=== PATIENT | male | born 1965 | race Caucasian/White ===

== ENCOUNTER → 2017-05-21 | Outpatient (CLI) | payer BC ==
--- NOTE | 2017-05-21 11:32 | REP ---
Clinical: Neck and right upper extremity pain. Technique: AP, lateral, flexion/extension, bilateral oblique and open mouth views of the cervical spine. Comparison: 07/20/2013. Findings: Alignment remains stable. There is no evidence for acute fracture / compression injury or subluxation. Minimal degenerative changes at the C4-5 and C5-6 levels include subtle endplate sclerosis with very minimal marginal spurring. Spinal canal is patent. Posterior elements are intact. Prevertebral soft tissues are normal. C1-C2 articulation and odontoid process normal. Impression: Very mild degenerative changes at the C4-5 and C5-6 levels. Signed by Kendrick Tapia MD 05/21/2017 11:24 A
== END ==
LOC: M SMT 10:23
PROVIDERS: ATTEND Physician Assistant
DX: M25.511 Pain in right shoulder (principal)

== ENCOUNTER → 2020-04-16 | Outpatient (CLI) | payer OTHER, SELFPAY | LOC: M LABSMTC 10:20 | PROVIDERS: ATTEND Pediatrics | DX: Z11.59 Encounter for screening for other viral diseases (principal); Z20.828 Contact with and (suspected) exposure to other viral communicable diseases ==

== ENCOUNTER → 2021-05-22 | Outpatient (CLI) | payer BC ==
[2021-05-22 08:46] LABS: BASO # 0.1 10^3/uL (0.0-0.2); BASO % 0.6 % (0.0-1.0); EOS # 0.2 10^3/uL (0.0-0.5); HEMATOCRIT 48.3 % (42.0-52.0); HEMOGLOBIN 15.9 g/dl (13.5-17.5); LYMPH # 3.4 10^3/uL (1.5-5.0); LYMPH % 34.5 % (24.0-44.0); MEAN CORPUSCULAR HEMOGLOBIN 30.1 pg (27.0-33.0); MEAN CORPUSCULAR HGB CONC 32.9 g/dl (32.0-36.5); MEAN CORPUSCULAR VOLUME 91.3 fl (80.0-96.0); MONO # 0.6 10^3/uL (0.0-0.8); MONO % 6.5 % (2.0-8.0); NEUTROPHILS # 5.4 10^3/uL (1.5-8.5); NEUTROPHILS % 55.5 % (36.0-66.0); PLATELET COUNT, AUTOMATED 270 10^3/uL (150-450); RED BLOOD COUNT 5.29 10^6/uL (4.30-6.10); WHITE BLOOD COUNT 9.7 10^3/uL (4.0-10.0)
[2021-05-22 09:24] LABS: ALBUMIN 2.7 GM/DL (3.2-5.2); ALT/SGPT 34 U/L (12-78); BILIRUBIN,TOTAL 0.5 MG/DL (0.2-1.0); BLOOD UREA NITROGEN 15 MG/DL (7-18); CALCIUM LEVEL 8.9 MG/DL (8.5-10.1); CARBON DIOXIDE LEVEL 30 MEQ/L (21-32); CHLORIDE LEVEL 108 MEQ/L (98-107); CHOLESTEROL LEVEL 253 MG/DL (<200); CHOLESTEROL RISK RATIO 5.622 (<5); CREATININE FOR GFR 0.91 MG/DL (0.70-1.30); FREE T4 0.83 NG/DL (0.76-1.46); GLOMERULAR FILTRATION RATE > 60.0 (>56); GLUCOSE, FASTING 105 MG/DL (70-100); HDL CHOLESTEROL 45 MG/DL (>40); LDL CHOLESTEROL 181 MG/DL (<100); NON-HDL-C 208 MG/DL; POTASSIUM SERUM 4.7 MEQ/L (3.5-5.1); SODIUM LEVEL 141 MEQ/L (136-145); TOTAL PROTEIN 7.1 GM/DL (6.4-8.2); TRIGLYCERIDES LEVEL 133 MG/DL (<150)
[2021-05-22 09:26] LABS: TOTAL 25(OH) VITAMIN D 17.2 NG/ML (30.0-100.0)
[2021-05-22 11:12] LABS: HEMOGLOBIN A1c 6.1 %
--- NOTE | 2021-05-27 17:01 | SLEEPHOME ---
DATE: 05/22/2021 ORDERED BY: Antonio Smith Diagnostic home sleep testing was performed due to concern for the obstructive sleep apnea syndrome. For testing, a NIOX T3 respiratory monitoring device was used. Continuous record was made of pulse, oxygen saturation, air flow, chest and abdominal strain, and body position. There was 5 hours and 40 minutes of data reviewed. During this interval there were 153 respiratory events identified of 10 seconds in duration. The events were primarily obstructive, not exclusive to sleep position. Baseline pulse revealed saturation of 97%. Lowest oxygen saturation recorded 71%. Baseline pulse rate 63 beats per minute. Pulse rate ranged 47-106. Testing was performed in both the supine and nonsupine positions. IMPRESSION: Abnormal home sleep testing with repetitive respiratory events and oxygen desaturations to 71% with a respiratory event index of 27.3 is consistent with the obstructive sleep apnea syndrome. RECOMMENDATION: The patient should be encouraged to undergo formal sleep evaluation.
== END ==
LOC: M SLEEP HO 08:06
PROVIDERS: ATTEND Physician Assistant
DX: Z12.5 Encounter for screening for malignant neoplasm of prostate (principal); Z13.29 Encounter for screening for other suspected endocrine disorder; Z13.220 Encounter for screening for lipoid disorders; R06.83 Snoring
CPT/HCPCS: 80053; 80061; 82306; 83036; 84439; 84443; 85025; G0103; G0399

== ENCOUNTER → 2021-07-18 | Outpatient (CLI) | payer BC ==
[~2021-07-18] MED LIST: ROSU10TA6
== END ==
LOC: M LABSMTC 09:54
PROVIDERS: ATTEND Anesthesiology
DX: Z01.812 Encounter for preprocedural laboratory examination (principal); Z20.822 Contact with and (suspected) exposure to COVID-19

== ENCOUNTER 2021-07-23 08:14 | Day surgery (SDC) | payer BC ==
[~2021-07-23] VITALS: Ht 175.3 cm; Wt 122.9 kg
[~2021-07-23 08:14] MED LIST changes: +NS 1,000 ML IV ONE
--- OUTSIDE RECORDS SUMMARY | 2021-07-23 08:17 | CCD | Continuity of Care Document ---
Author Author Oliverio STEARNS DC Organization Unknown Address [place] [address] Phone [phone] Care Team Providers Care Bulk Folder Name Role Phone Christiana Jim D.O. AUTM [phone] Problems Active Problems Provider Date Reduced libido Christiana Jim D.O. Onset: 2014 Hypersomnia, unspecified Christiana Jim D.O. Onset: 1 Chronic fatigue syndrome Christiana Jim D.O. Onset: 1 Low back pain Christiana Jim D.O. Onset: 2014 Body mass index 30+ - obesity Christiana Jim D.O. Ons et: 07/12/2015 Obesity Christiana Jim D.O. Onset: 2014 Urinary symptoms Christiana Jim D.O. Onset: 2014 Social History Type Date Description Comments Sex Unknown Tobacco Use Start: Unknown Never Smoked Cigarettes ETOH Use Occasionally consumes alcohol 3- 4/month Tobacco Use Start: Unknown Patient has never smoked Recreational Drug Use Denies Drug Use Exercise Type/Frequency Does not exercise Sun Exposure Does not use sunscreen Seat Belt/Car Seat Always uses car seat Allergies, Adverse Reactions, Alerts Description No Known Drug Allergies Medications Active Medications SIG Qnty Indications Ordering Provide r Date Betamethasone Dipropionate 0.05% C ream apply 1 grams of cream to affected area of body as needed twice a day for dry skin plaques 45gm L40.9 Christiana Jim D.O. 05/08 [facility] Home Sleep Study snoring and fatigue 1units R06.83 Christiana Jim D.O. 05/08/2021 Ketoconazole 2% Cream apply to axilla twice daily for three weeks 30gm B35.4 Christiana Jim D.O. 05/08/2021 Ibuprofen 600mg Tablets take 1 by mouth every three times a day as needed for pain with food 90tabs M77.12 Christiana Jim D.O. 04/08/2017 Immunizations Description No Information Available Vital Signs Date Vital Result Comment 05/08/2021 3:40pm BP Systolic 128 mmHg BP Diastolic 78 mmHg Height 69.5 inches 5'9.50" Weight 278.38 lb BMI (Body Mass Index) 40.5 kg/m2 Heart Rate 86 /min Respiratory Rate 18 /min Body Temperature 98.8 F O2 % BldC Oximetry 97 % [place] Body Weight 160 lb 08/15/2018 3:46pm BP Systolic 128 mmHg BP Diastolic 78 mmHg Height 69.5 inches 5'9.50" Weight 258.25 lb BMI (Body Mass Index) 37.6 kg/m2 Heart Rate 92 /min Respiratory Rate 18 /min Body Temperature 98.7 F O2 % BldC Oximetry 98 % [place] Body Weight 160 lb Results Description No Information Available Procedures Description No Information Available Medical Devices Description No Information Available Encounters Description No Information Available Assessments Date Code Description Provider 05/08/2021 R06.83 Snoring IVANNA Lay 05/08/2021 Z13.220 Encounter for screening for lipo id disorders IVANNA Lay 05/08/2021 Z13.29 Encounter for screen ing for other suspected endocrine disorder IVANNA Lya 05/08/2021 Z12.5 Encounter for screening for ayleen gnant neoplasm of prostate IVANNA Lay 05/08/2021 Z12.11 Encounter for screening for ayleen gnant neoplasm of colon IVANNA Lay 05/08/2021 L40.9 Psoriasis, unspecified IVANNA Tuttle 05/08/2021 B35.4 Tinea corporis IVANNA Lay Plan of Treatment Future Appointment(s):* 06/16/2021 3:40 pm - IVANNA Lay at [facility] 05/08/2021 - IVANNA Lay* R06.83 Snoring* New Medication:* [facility] Home Sleep Study - snoring and fatigue * Follow up:* 1 months * Z13.220 Encounter for screening for lipoid disorders* New Labs:* Lipid Panel, Scheduled: 05/08/21 * Z13.29 Encounter for screening for other suspected endocrine disorder* New Labs:* Hemoglobin A1c, Scheduled: 05/08/21 * FT4&TSH Panel, Scheduled: 05/08/21 * Vitamin D 25-Hydroxy, Scheduled: 05/08/21 * Z12.5 Encounter for screening for malignant neoplasm of prostate* New Labs:* CBC With Differential, Scheduled: 05/08/21 * Comprehensive Metabolic Profil, Scheduled: 05/08/21 * PSA Screening, Scheduled: 05/08/21 * Z12.11 Encounter for screening for malignant neoplasm of colon* Comments:* Referral placed for Dr. Abran Kearns for evaluation of a colonoscopy and possible endoscopy. * Referral:* Abran Kearns M.D., Surgery,General * L40.9 Psoriasis, unspecified* New Medication:* Betamethasone Dipropionate 0.05 % - apply 1 grams of cream to affected area of body as needed twice a day for dry skin plaques * B35.4 Tinea corporis* New Medication:* Ketoconazole 2 % - apply to axilla twice daily for three weeks Functional Status Description No Information Available Mental Status Description No Information Available Referrals Refer to Dr Reason for Referral Status Appt Date Abran Kearns M.D. [place] is 55 years old and in need of a colonoscopy. He has problems with stomach cramping, diarrhea and changes in stool pattern. Occasionally has black stool Created 6 [facility] [address] [place] [address] [phone]
--- OUTSIDE RECORDS SUMMARY | 2021-07-23 08:17 | CCD | Continuity of Care Document ---
Author Author Oliverio STEARNS [place] Organization Unknown [place] [address] Phone [phone] Care Team Providers Care Hvac R Tech Name Role Phone Christiana Jim D.O. AUTM [phone] Abran Kearns M.D. AUTM [phone] Problems Active Problems Provider Date Reduced libido [...] SIG Qnty Indications Ordering Provide r Date Vitamin D (Ergocalciferol) 1.25mg (27246 Ut) Capsules 1 capsule weekly for 12 weeks 12caps Christiana Nick D.O. 05/26/2021 Crestor 10mg Tablets 1 by mouth every day 90tabs Parminder VencesOLeroy 05/26/2021 Betamethasone Dipropionate 0.05% C ream apply 1 grams of cream to affected area of body as needed twice a day for dry skin plaques 45gm L40.9 Christiana Jim D.O. 05/08 [facility] Home Sleep Study snoring and fatigue 1units R06.83 Parminder VencesOLeroy 05/08/2021 Ketoconazole 2% Cream apply to axilla twice daily for three weeks 30gm B35.4 Christiana Jim D.O. 05/08/2021 Ibuprofen 600mg Tablets take 1 by mouth every three times a day as needed for pain with food 90tabs M77.12 Parminder VencesOLeroy 04/08/2017 Immunizations Description No Information Available Vital Signs Date Vital Result Comment 05/08/2021 3:40pm BP Systolic 128 mmHg BP Diastolic 78 mmHg Height 69.5 inches 5'9.50" Weight 278.38 lb BMI (Body Mass Index) 40.5 kg/m2 Heart Rate 86 /min Respiratory Rate 18 /min Body Temperature 98.8 F O2 % BldC Oximetry 97 % [place] Body Weight 160 lb 08/15/2018 3:46pm BP Systolic 128 mmHg BP Diastolic 78 mmHg Height 69.5 inches 5'9.50" Weight 258.25 lb BMI (Body Mass Index) 37.6 kg/m2 Heart Rate 92 /min Respiratory Rate 18 /min Body Temperature 98.7 F O2 % BldC Oximetry 98 % [place] Body Weight 160 lb Results Test Acquired Date Facility Test Result H/L Range Note CBC With Differential 05/22/[address] [address] [phone] White Blood Count 9.7 10 Normal 4.0-10.0 Red Blood Count 5.29 10 Normal 4.30-6.10 Hemoglobin 15.9 g/dL Normal 13.5-17.5 Hematocrit 48.3 % Normal 42.0-52.0 Mean Corpuscular Volume 91.3 fl Normal 80.0-96.0 Mean Corpuscular Hemoglobin 30.1 pg Normal 27.0-33.0 Mean Corpuscular HGB Conc 32.9 g/dL Normal 32.0-36.5 Red Cell Distribution Width 12.6 % Normal 11.5-14.5 Platelet Count, Automated 270 10 Normal 150-450 Neutrophils % 55.5 % Normal 36.0-66.0 Lymph % 34.5 % Normal 24.0-44.0 [place] % 6.5 % Normal 2.0-8.0 Eos % 2.0 % Normal 0.0-3.0 Baso % 0.6 % Normal 0.0-1.0 Immature Granulocyte % 0.9 % Normal 0-3.0 Nucleated Red Blood Cell % 0.0 % Normal 0-0 Neutrophils # 5.4 10 Normal 1.5-8.5 Lymph # 3.4 10 Normal 1.5-5.0 [place] # 0.6 10 Normal 0.0-0.8 Eos # 0.2 10 Normal 0.0-0.5 Baso # 0.1 10 Normal 0.0-0.2 Comprehensive Metabolic Profil 05/22/2021 [place] [id number] [phone] Glucose, Fasting 105 mg/dL High 70-100 Blood Urea Nitrogen 15 mg/dL Normal 7-18 Creatinine For GFR 0.91 mg/dL Normal 0.70-1.30 Glomerular Filtration Rate > 60.0 Normal >56 1 Sodium Level 141 mEq/L Normal 136-145 Potassium Serum 4.7 mEq/L Normal 3.5-5.1 Chloride Level 108 mEq/L High 98-107 Carbon Dioxide Level 30 mEq/L Normal 21-32 Anion Gap 3 mEq/L Low 8-16 Calcium Level 8.9 mg/dL Normal 8.5-10.1 Ast/Sgot 14 U/L Normal 7-37 Alt/SGPT 34 U/L Normal 12-78 Alkaline Phosphatase 110 U/L Normal 45-117 Bilirubin,Total 0.5 mg/dL Normal 0.2-1.0 Total Protein 7.1 GM/DL Normal 6.4-8.2 Albumin 2.7 GM/DL Low 3.2-5.2 Albumin/Globulin Ratio 0.6 Normal Laboratory test finding 05/22/[address] [address] [phone] PSA Screening 0.87 NG/ML Normal < 4.00 2 Hemoglobin A1c 05/22/[address] [address] [phone] Hemoglobin A1c 6.1 % Normal 3 Estimated Average Glucose 128 mg/dL High 60-110 FT4&TSH Panel 05/22/[address] [address] [phone] Thyroid Stimulating Hormone 1.820 uIU/ML Normal 0. 358-3.740 Free T4 0.83 ng/dL Normal 0.76-1.46 Laboratory test finding 05/22/[address] [address] [phone] Total 25(Oh) Vitamin D 17.2 NG/ML Low 30.0-100. 0 Lipid Panel 05/22/[address] [address] [phone] Triglycerides Level 133 mg/dL Normal <150 Cholesterol Level 253 mg/dL High <200 HDL Cholesterol 45 mg/dL Normal >40 LDL Cholesterol 181 mg/dL High <100 Non-HDL-C 208 mg/dL Normal Cholesterol Risk Ratio 5.622 High <5 1 Units are mL/min/1.73 m2 Chronic Kidney Disease Staging per NKF: Stage I & II GFR >=60 Normal to Mildly Decreased Stage III GFR 30-59 Moderately Decreased Stage IV GFR 15-29 Severely Decreased Stage V GFR <15 Very Little GFR Left ESRD GFR <15 on CHILI POWDER MIXER 2 The PSA assay is performed o n the Siemens [place] analyzer by LOCI sandwich chemiluminescent immunoassay and should not be compared interchangeably with other methods. It should not be used alone as a screening test or diagnosis for the presence or absence of malignant disease. Predictions of disease recurrence should not be based solely on values obtained from serial patient serum values. 3 REFERENCE RANGES: <=5.6% NORMAL 5.7-6.4% SUGGESTS IMPAIRED GLUCOSE META BOLISM/PREDIABETIC >= 6.5% ABNORMAL Procedures Date Code Description Status 05/08/2021 [address]4816 Office/Outpatient Established Mo d MDM 30-39 Min Completed Medical Devices Description No Information Available Encounters Type Date Location Provider Dx Diagnosis Office Visit 05/08/2021 3:40p [facility] IVANNA Lay R06.83 Snoring Z13.220 Encounter for screening for lipoid disorders Z13.29 Encounter for screening for oth suspected endocrine disorder Z12.5 Encounter for screening for malignant neoplasm of prostate Z12.11 Encounter for screening for malignant neoplasm of colon L40.9 Psoriasis, unspecified B35.4 Tinea corporis Assessments Date Code Description Provider 05/08/2021 R06.83 Snoring IVANNA Lay 05/08/2021 Z13.220 Encounter for screening for lipo id disorders IVANNA Lay 05/08/2021 Z13.29 Encounter for screen ing for other suspected endocrine disorder IVANNA Lay 05/08/2021 Z12.5 Encounter for screening for ayleen gnant neoplasm of prostate IVANNA Lay 05/08/2021 Z12.11 Encounter for screening for ayleen gnant neoplasm of colon IVANNA Lay 05/08/2021 L40.9 Psoriasis, unspecified IVANNA Tuttle 05/08/2021 B35.4 Tinea corporis IVANNA Lay Plan of Treatment Future Appointment(s):* 06/16/2021 3:40 pm - IVANNA Lay at [facility] Functional Status Description No Information Available Mental Status Description No Information Available Referrals Refer to Dr Reason for Referral Status Appt Date Abran Kearns M.D. [place] is 55 years old and in need of a colonoscopy. He has problems with stomach cramping, diarrhea and changes in stool pattern. Occasionally has black stool Sent 06/02/[address] [place] [address] [phone]
--- OUTSIDE RECORDS SUMMARY | 2021-07-23 08:17 | CCD | Continuity of Care Document ---
Author Author Oliverio STEARNS Organization Unknown [place] [address] Phone [phone] Care Team Providers Care Hem Inspector Name Role Phone Christiana Jim D.O. AUTM [phone] Abran Kearns M.D. AUTM [phone] Wallace AUTM [phone] Problems Active Problems Provider Date Reduced libido Christiana Jim D.O. Onset: 2014 Hypersomnia, unspecified Christiana Jim D.O. Onset: 1 Chronic fatigue syndrome Christiana Jim D.O. Onset: 1 Low back pain Christiana Jim D.O. Onset: 2014 Body mass index 30+ - obesity Christiana Jim D.O. Ons et: 07/12/2015 Obesity Christiana Jim D.O. Onset: 2014 Urinary symptoms Christiana Jim D.O. Onset: 2014 Vitamin D deficiency IVANNA Lay Onset: 06/16/2021 Pure hypercholesterolemia IVANNA Lay Onset: Impaired fasting glycemia IVANNA Lay Onset: 021 Obstructive sleep apnea syndrome IVANNA Lay Onset: 06/16/2021 Social History Type Date Description Comments Sex [...] SIG Qnty Indications Ordering Provide r Date Itraconazole 100mg Capsules take two capsules by mouth daily for four weeks 60caps Parminder MillerOLeroy 06/03/2021 Vitamin D (Ergocalciferol) 1.25mg (46394 Ut) Capsules 1 capsule weekly for 12 weeks 12caps Parminder HolmanO. 05/26/2021 Crestor 10mg Tablets 1 by mouth every day 90tabs Christiana Jim D.O. 05/26/2021 Betamethasone Dipropionate 0.05% C ream apply 1 grams of cream to affected area of body as needed twice a day for dry skin plaques 45gm L40.9 Christiana Jim D.O. 05/08 [facility] Home Sleep Study snoring and fatigue 1units R06.83 Parminder VencesOLeroy 05/08/2021 Ibuprofen 600mg Tablets take 1 by mouth every three times a day as needed for pain with food 90tabs M77.12 Parminder VencesO. 04/08/2017 History Medications Ketoconazole 2% Cream apply to axilla twice daily for three weeks 30gm B35.4 Parminder VencesOLeroy 05/08/2021 - 06/16/2021 Immunizations CPT Code Status Date Vaccine Lot # [id number] Given 06/16/2021 Influenza Virus Vaccine, Quadrivalent, Slit Virus, Im Use [id number] Vital Signs Date Vital Result Comment 06/16/2021 2:23pm BP Systolic 126 mmHg BP Diastolic 74 mmHg Height 69.5 inches 5'9.50" Weight 275.38 lb BMI (Body Mass Index) 40.1 kg/m2 Heart Rate 90 /min Respiratory Rate 18 /min Body Temperature 98.3 F O2 % BldC Oximetry 96 % [place] Body Weight 160 lb 05/08/2021 3:40pm BP Systolic 128 mmHg BP Diastolic 78 mmHg Height 69.5 inches 5'9.50" Weight 278.38 lb BMI (Body Mass Index) 40.5 kg/m2 Heart Rate 86 /min Respiratory Rate 18 /min Body Temperature 98.8 F O2 % BldC Oximetry 97 % [place] Body Weight 160 lb Results Test Acquired Date Facility Test Result H/L Range Note CBC With Differential 05/22/[address] [address] [phone] White Blood Count 9.7 10 Normal 4.0-10.0 [...] 36.0-66.0 Lymph % 34.5 % Normal 24.0-44.0 [place] % 6.5 % Normal 2.0-8.0 Eos % 2.0 % Normal 0.0-3.0 Baso % 0.6 % Normal 0.0-1.0 Immature Granulocyte % 0.9 % Normal 0-3.0 Nucleated Red Blood Cell % 0.0 % Normal 0-0 Neutrophils # 5.4 10 Normal 1.5-8.5 Lymph # 3.4 10 Normal 1.5-5.0 [place] # 0.6 10 Normal 0.0-0.8 Eos # 0.2 10 Normal 0.0-0.5 Baso # 0.1 10 Normal 0.0-0.2 Comprehensive Metabolic Profil 05/22/[address] [address] [phone] Glucose, Fasting 105 mg/dL High 70-100 Blood [...] Ratio 0.6 Normal Laboratory test finding 05/22/[address] [address] [phone] PSA Screening 0.87 NG/ML Normal < 4.00 2 Hemoglobin A1c 05/22/[address] [address] [phone] Hemoglobin A1c 6.1 % Normal 3 Estimated Average Glucose 128 mg/dL High 60-110 FT4&TSH Panel 05/22/[address] [address] [phone] Thyroid Stimulating Hormone 1.820 uIU/ML Normal 0. 358-3.740 Free T4 0.83 ng/dL Normal 0.76-1.46 Laboratory test finding 05/22/[address] [address] [phone] Total 25(Oh) Vitamin D 17.2 NG/ML Low 30.0-100. 0 Lipid Panel 05/22/[address] [address] [phone] Triglycerides Level 133 mg/dL Normal <150 Cholesterol [...] Little GFR Left ESRD GFR <15 on NARRATIVE WRITER 2 The PSA assay is performed o n the Siemens [place] analyzer by LOCI sandwich chemiluminescent immunoassay and [...] 6.5% ABNORMAL Procedures Date Code Description Status 06/16/2021 [address]892 Office/Outpatient Established Mo d MDM 30-39 Min Completed 05/08/2021 [address]76[address] Office/Outpatient Established Mo d MDM 30-39 Min Completed Medical Devices Description No Information Available Encounters Type Date Location Provider Dx Diagnosis Office Visit 06/16/2021 2:30p [facility] IVANNA Lay G47.33 Obstructive sleep apnea (jose alberto lt) (pediatric) R73.01 Impaired fasting glucose E78.00 Pure hypercholesterolemia, u nspecified E55.9 Vitamin D deficiency, unspec ified Z23 Encounter for immunization Office Visit 05/08/2021 3:40p [facility] IVANNA Lay R06.83 Snoring Z13.220 Encounter for screening for lipoid disorders Z13.29 Encounter for screening for oth suspected endocrine disorder Z12.5 Encounter for screening for malignant neoplasm of prostate Z12.11 Encounter for screening for malignant neoplasm of colon L40.9 Psoriasis, unspecified B35.4 Tinea corporis Assessments Date Code Description Provider 06/16/2021 G47.33 Obstructive sleep apnea (adult) (pediatric) IVANNA Lay 06/16/2021 R73.01 Impaired fasting glucose IVANNA Lay 06/16/2021 E78.00 Pure hypercholesterolemia, unspe cified IVANNA Lay 06/16/2021 E55.9 Vitamin D deficiency, unspecifie d IVANNA Lay 06/16/2021 Z23 Encounter for immunization IVANNA Gray 05/08/2021 R06.83 Snoring IVANNA Lay 05/08/2021 Z13.220 [...] IVANNA Lay Plan of Treatment Future Appointment(s):* 09/22/2021 11:20 am - IVANNA Lay at [facility] 06/16/2021 - IVANNA Lay* G47.33 Obstructive sleep apnea (adult) (pediatric)* Comments:* Still awaiting supplies from [employer]. * R73.01 Impaired fasting glucose* New Labs:* CBC With Differential, Scheduled: 09/16/21 * Comprehensive Metabolic Profil, Scheduled: 09/16/21 * Hemoglobin A1c, Scheduled: 09/16/21 * Lipid Panel, Scheduled: 09/16/21 * Vitamin D 25-Hydroxy, Scheduled: 09/16/21 * Comments:* Work on cutting out concentrated sweets, and carbohydrates to help with weight and blood sugar. * Follow up:* 3 month * E78.00 Pure hypercholesterolemia, unspecified* Comments:* Continue with Crestor 10 mg as prescribed and work on dietary changes as we discussed * E55.9 Vitamin D deficiency, unspecified* Comments:* Continue with once a week Vitamin D supplement and then start a Vitamin D3 OTC 2,000 IU supplement. * Z23 Encounter for immunization Functional Status Description No Information Available Mental Status Description No Information Available Referrals Refer to Reason for Referral Status Appt Date Abran Kearns M.D. [place] is 55 years old and in need of a colonoscopy. He has problems with stomach cramping, diarrhea and changes in stool pattern. Occasionally has black stool Sent 06/02/[address] [place], [place] [id number] [phone]
--- OUTSIDE RECORDS SUMMARY | 2021-07-23 08:17 | CCD | Continuity of Care Document ---
Author Author Oliverio STEARNS Organization Unknown Address [place] [address] Phone [phone] Care Team Providers Care Communications Program Manager Name Role Phone Christiana Jim D.O. AUTM [phone] Abran Kearns M.D. AUTM [phone] Wallace AUTM [phone] Problems Active Problems Provider Date Reduced libido [...] Parminder MillerOLeroy 06/03/2021 Vitamin D (Ergocalciferol) 1.25mg (23260 Ut) Capsules 1 capsule weekly for 12 weeks 12caps Parminder HolmanOLeroy 05/26/2021 Crestor 10mg Tablets 1 by mouth every day 90tabs Parminder VencesOLeroy 05/26/2021 Betamethasone Dipropionate 0.05% C ream apply 1 grams of cream to affected area of body as needed twice a day for dry skin plaques 45gm L40.9 Christiana Jim D.O. 05/08 [facility] Home Sleep Study snoring and fatigue 1units R06.83 Parminder VencesOLeroy 05/08/2021 Ibuprofen 600mg Tablets take 1 by mouth every three times a day as needed for pain with food 90tabs M77.12 Parminder VencesO. 04/08/2017 History Medications Ketoconazole 2% Cream apply to axilla twice daily for three weeks 30gm B35.4 Parminder VencesOLeroy 05/08/2021 - 06/16/2021 Medications Administered in Office Medication SIG Qnty Indications Ordering Provider Date Immunization Administration Single Or Co mbination Injection IVANNA Lay 12/2020 Immunizations CPT Code Status Date Vaccine Lot # [id number] Given 06/16/2021 Influenza Virus Vaccine, Quadrivalent, Slit Virus, Im Use [id number] Vital Signs Date Vital Result Comment 06/16/2021 2:23pm BP Systolic 126 mmHg BP Diastolic 74 mmHg Height 69.5 inches 5'9.50" Weight 275.38 lb BMI (Body Mass Index) 40.1 kg/m2 Heart Rate 90 /min Respiratory Rate 18 /min Body Temperature 98.3 F O2 % BldC Oximetry 96 % [place] Body Weight 160 lb 05/08/2021 3:40pm BP Systolic 128 mmHg BP Diastolic 78 mmHg Height 69.5 inches 5'9.50" Weight 278.38 lb BMI (Body Mass Index) 40.5 kg/m2 Heart Rate 86 /min Respiratory Rate 18 /min Body Temperature 98.8 F O2 % BldC Oximetry 97 % [place] Body Weight 160 lb Results Test Acquired Date Facility Test Result H/L Range Note CBC With Differential 05/22/[address] [address] [phone] White Blood Count 9.7 10 Normal 4.0-10.0 [...] 36.0-66.0 Lymph % 34.5 % Normal 24.0-44.0 [place] % 6.5 % Normal 2.0-8.0 Eos % 2.0 % Normal 0.0-3.0 Baso % 0.6 % Normal 0.0-1.0 Immature Granulocyte % 0.9 % Normal 0-3.0 Nucleated Red Blood Cell % 0.0 % Normal 0-0 Neutrophils # 5.4 10 Normal 1.5-8.5 Lymph # 3.4 10 Normal 1.5-5.0 [place] # 0.6 10 Normal 0.0-0.8 Eos # 0.2 10 Normal 0.0-0.5 Baso # 0.1 10 Normal 0.0-0.2 Comprehensive Metabolic Profil 05/22/[address] [address] [phone] Glucose, Fasting 105 mg/dL High 70-100 Blood [...] Ratio 0.6 Normal Laboratory test finding 05/22/[address] [address] [phone] PSA Screening 0.87 NG/ML Normal < 4.00 2 Hemoglobin A1c 05/22/[address] [address] [phone] Hemoglobin A1c 6.1 % Normal 3 Estimated Average Glucose 128 mg/dL High 60-110 FT4&TSH Panel 05/22/[address] [address] [phone] Thyroid Stimulating Hormone 1.820 uIU/ML Normal 0. 358-3.740 Free T4 0.83 ng/dL Normal 0.76-1.46 Laboratory test finding 05/22/[address] [address] [phone] Total 25(Oh) Vitamin D 17.2 NG/ML Low 30.0-100. 0 Lipid Panel 05/22/[address] [address] [phone] Triglycerides Level 133 mg/dL Normal <150 Cholesterol [...] Little GFR Left ESRD GFR <15 on [employer] 2 The PSA assay is performed o n the Siemens [place] analyzer by LOCI sandwich chemiluminescent immunoassay and [...] ABNORMAL Procedures Date Code Description Status 06/16/2021 99779 Office/Outpatient Established Mo d MDM 30-39 Min Completed 05/08/2021 64090 Office/Outpatient Established Mo d MDM 30-39 Min Completed Medical Devices Description No Information Available Encounters Type Date Location Provider Dx Diagnosis Office Visit 06/16/2021 2:30p [facility] IVANNA Lay G47.33 Obstructive sleep apnea (jose alberto lt) (pediatric) R73.01 Impaired fasting glucose E78.00 Pure hypercholesterolemia, u nspecified E55.9 Vitamin D deficiency, unspec ified Z23 Encounter for immunization Office Visit 05/08/2021 3:40p [facility] IVANNA Lay R06.83 Snoring Z13.220 Encounter for [...] IVANNA Lay 06/16/2021 Z23 Encounter for immunization [place] IVANNA Cop[place] 05/08/2021 R06.83 Snoring IVANNA Lay 05/08/2021 Z13.220 [...] 09/22/2021 11:20 am - IVANNA Lay at [facility] Functional Status Description No Information Available Mental Status Description No Information Available Referrals Refer to Reason for Referral Status Appt Date Abran Kearns M.D. [place] is 55 years old and in need of a colonoscopy. He has problems with stomach cramping, diarrhea and changes in stool pattern. Occasionally has black stool Sent 06/02/[address] [place] [id number] [phone]
--- OUTSIDE RECORDS SUMMARY | 2021-07-23 08:17 | CCD | Continuity of Care Document ---
Author Author Oliverio STEARNS [place] Organization Unknown [place] [address] Phone [phone] Care Team Providers Care Jar Filler Name Role Phone Christiana Jim D.O. AUTM Abran Kearns M.D. AUTM [phone] Problems Active Problems Provider Date Reduced libido [...] day for dry skin plaques 45gm L40.9 Parminder VencesOLeroy 05/08 [facility] Home Sleep Study snoring and fatigue 1units R06.83 Parminder VencesOLeroy 05/08/2021 Ketoconazole 2% Cream apply to axilla twice daily for three weeks 30gm B35.4 Parminder VencesOLeroy 05/08/2021 Ibuprofen 600mg Tablets take [...] F O2 % BldC Oximetry 97 % [place] Body Weight 160 lb 08/15/2018 3:46pm BP Systolic 128 mmHg BP Diastolic 78 mmHg Height 69.5 inches 5'9.50" Weight 258.25 lb BMI (Body Mass Index) 37.6 kg/m2 Heart Rate 92 /min Respiratory Rate 18 /min Body Temperature 98.7 F O2 % BldC Oximetry 98 % [place] Body Weight 160 lb Results Description No Information Available Procedures Date Code Description Status 05/08/2021 10410 Office/Outpatient Established Mo d MDM 30-39 Min Completed Medical Devices Description No Information Available Encounters Type Date Location Provider Dx Diagnosis Office Visit 05/08/2021 3:40p [facility] IVANNA Lay R06.83 Snoring Z13.220 Encounter [...] 06/16/2021 3:40 pm - IVANNA Lay at [facility] Functional Status Description No Information Available Mental Status Description No Information Available Referrals Refer to Reason for Referral Status Appt Date Abran Kearns M.D. [place] is 55 years old and in need of a colonoscopy. He has problems with stomach cramping, diarrhea and changes in stool pattern. Occasionally has black stool Sent 06/02/[address] [place] [address] [phone]
--- OUTSIDE RECORDS SUMMARY | 2021-07-23 08:18 | CCD ---
Author Author [facility] Organization [facility] Address Unknown Phone Unavailable Care Team Providers Care Agency Cashier Name Role Phone Claudio Hernandez Unavailable Unavailable O'alejandroClaudio avery Unavailable Unavailable O'alejandro, Claudio GONCALVES Unavailable Unavailable O'alejandro, Claudio GONCALVES Unavailable Unavailable O'alejandroClaudio avery Unavailable Unavailable O'alejandro, Claudio GONCALVES Unavailable Unavailable O'alejandro, Claudio GONCALVES Unavailable Unavailable O'alejandro, Claudio GONCALVES Unavailable Unavailable O'alejandroClaudio avery Unavailable Unavailable O'alejandro, A Antonio PA Unavailable Unavailable O'alejandro, A Antonio PA Unavailable Unavailable O'alejandro, A Antonio PA Unavailable Unavailable O'alejandro, A Antonio PA Unavailable Unavailable O'alejandro, A Antonio PA Unavailable Unavailable O'alejandro, A Antonio PA Unavailable Unavailable O'alejandro, A Antonio PA Unavailable Unavailable O'alejandro, A Antonio PA Unavailable Unavailable O'alejandro, A Antonio PA Unavailable Unavailable O'alejandro, A Antonio PA Unavailable Unavailable O'alejandro, A Antonio PA Unavailable Unavailable O'alejandro, A Antonio PA Unavailable Unavailable O'alejandro, A Antonio PA Unavailable Unavailable O'alejandro, A Antonio PA Unavailable Unavailable O'alejandro, A Antonio PA Unavailable Unavailable O'alejandro, A Antonio PA Unavailable Unavailable O'alejandro, A Antonio PA Unavailable Unavailable O'alejandro, A Antonio PA Unavailable Unavailable O'alejandro, A Antonio PA Unavailable Unavailable O'alejandro, A Antonio PA Unavailable Unavailable O'alejandro, A Antonio PA Unavailable Unavailable O'alejandro, A Antonio PA Unavailable Unavailable O'alejandro, A Antonio PA Unavailable Unavailable O'alejandro, A Antonio PA Unavailable Unavailable Santana, L Dorothy RPA Unavailable Unavailable Santana, L Dorothy RPA Unavailable Unavailable Santana, L Dorothy RPA Unavailable Unavailable Santana, L Dorothy RPA Unavailable Unavailable Santana, L Dorothy RPA Unavailable Unavailable Santana, L Dorothy RPA Unavailable Unavailable Santana, L Dorothy RPA Unavailable Unavailable Santana, L Dorothy RPA Unavailable Unavailable Santana, L Dorothy RPA Unavailable Unavailable Santana, L Dorothy RPA Unavailable Unavailable Santana, L Dorothy RPA Unavailable Unavailable Santana, L Dorothy RPA Unavailable Unavailable Santana, L Dorothy RPA Unavailable Unavailable Santana, L Dorothy RPA Unavailable Unavailable Santana, L Dorothy RPA Unavailable Unavailable Santana, L Dorothy RPA Unavailable Unavailable Santana, L Dorothy RPA Unavailable Unavailable Santana, L Dorothy RPA Unavailable Unavailable Santana, L Dorothy RPA Unavailable Unavailable Santana, L Dorothy RPA Unavailable Unavailable Santana, L Dorothy RPA Unavailable Unavailable Santana, L Dorothy RPA Unavailable Unavailable Santana, L Dorothy RPA Unavailable Unavailable Santana, L Dorothy RPA Unavailable Unavailable Santana, L Dorothy RPA Unavailable Unavailable Santana, L Dorothy RPA Unavailable Unavailable Santana, L Dorothy RPA Unavailable Unavailable Santana, L Dorothy RPA Unavailable Unavailable Santana, L Dorothy RPA Unavailable Unavailable Santana, L Dorothy RPA Unavailable Unavailable Santana, L Dorothy RPA Unavailable Unavailable Santana, L Dorothy RPA Unavailable Unavailable Re-disclosure Warning The records that you are about to access may contain information from federally-assisted alcohol or drug abuse programs. If such information is present, then the following federally mandated warning applies: This information has been disclosed to you from records protected by federal confidentiality rules (42 CFR part 2). The federal rules prohibit you from making any further disclosure of this information unless further disclosure is expressly permitted by the written consent of the person to whom it pertains or as otherwise permitted by 42 CFR part 2. A general authorization for the release of medical or other information is NOT sufficient for this purpose. The Federal rules restrict any use of the information to criminally investigate or prosecute any alcohol or drug abuse patient.The records that you are about to access may contain highly sensitive health information, the redisclosure of which is protected by Article 27-F of the [facility] Public Health law. If you continue you may have access to information: Regarding HIV / AIDS; Provided by facilities licensed or operated by the [facility] Office of Mental Health; or Provided by the [facility] Office for People With Developmental Disabilities. If such information is present, then the following [facility] mandated warning applies: This information has been disclosed to you from confidential records which are protected by state law. State law prohibits you from making any further disclosure of this information without the specific written consent of the person to whom it pertains, or as otherwise permitted by law. Any unauthorized further disclosure in violation of state law may result in a fine or long-term sentence or both. A general authorization for the release of medical or other information is NOT sufficient authorization for further disc losure. Family History Family Member Name Family Member Gender Family Member Status Date o f Status Description Data Source(s) Unknown Male Problem [facility] ([facility]) Unknown Male Problem [facility] ([facility]) Encounters Encounter Providers Location Date Indications Data Source(s ) Outpatient Attender: Antonio GONCALVES [facility] 06/16/2021 02:30:00 PM EDT [facility] ([facility]) Outpatient Attender: Dortohy Anderson/Anika/Tona cheatham 06/02/2021 11:15:00 AM EDT [facility] ([facility], ) Outpatient Attender: Antonio GONCALVES [facility] 05/08/2021 03:40:00 PM EDT [facility] ([facility]) Immunizations Vaccine Date Status Description Data Source(s) New in 2012. IIV4 06/16/2021 03:08:00 PM EDT completed [facility] ([facility]) COVID-19 VACCINE Moderna 01/09/2021 12:00:00 AM EDT completed [facility] Vaccine Series Complete: YESThis Data wa s Submitted to [facility] Via [employer]. COVID-19 VACCINE Moderna 11/26/2020 12:00:00 AM EDT completed [facility] Vaccine Series Complete: NOThis Data was Submitted to [facility] Via [employer]. Medications Medication Brand Name Start Date Product Form Dose Route Admi nistrative Instructions Pharmacy Instructions Status Indications Reaction Description Data Source(s) Immunization Administration Single Or Combination 06/16/2021 12:00:00 AM EDT completed [facility] ([facility]) Medication administered onsite Cyclobenzaprine hydrochloride 10 MG Oral Tablet CYCLOBENZAPR INE HCL 06/04/2021 12:00:00 AM EDT tablet 10 TAKE ONE TABLET BY MOUTH EVERY DAY AT BEDTIME TAKE ONE TABLET BY MOUTH EVERY DAY AT BEDTIME SOLD: 06/05/2021 [facility] 5 % 06/04/2021 12:00:00 AM EDT adhesive patch,medicate d 30 APPLY 1 PATCH TO THE SKIN ONCE DAILY, MAY LEAVE ON 12 HOURS THEN LEAVE OFF 12 HOURS APPLY 1 PATCH TO THE SKIN ONCE DAILY, MAY LEAVE ON 12 HOURS THEN LEAVE OFF 12 HOURS SOLD: 06/05/2021 [facility] 800 mg 06/04/2021 12:00:00 AM EDT tablet 30 TAKE ONE TABLET BY MOUTH THREE TIMES A DAY FOR 10 DAYS TAKE ONE TABLET BY MOUTH THREE TIMES A DAY FOR 10 DAYS SOLD: 06/05/2021 [facility] 100 mg 06/04/2021 12:00:00 AM EDT capsule 60 TAKE TWO CAPSULES BY MOUTH EVERY DAY FOR 4 WEEKS TAKE TWO CAPSULES BY MOUTH EVERY DAY FOR 4 WEEKS SOLD: 06/05/2021 [facility] Itraconazole 100 MG Oral Capsule Itraconazole 06/03/2021 12:00:00 AM EDT ORAL active [facility] ([facility]) 1,250 mcg (50,000 unit) 05/28/2021 12:00:00 AM EDT capsule 4 TAKE 1 CAPSULE BY MOUTH ONCE WEEKLY TAKE 1 CAPSULE BY MOUTH ONCE WEEKLY SOLD: 05/28/2021 [facility] Rosuvastatin calcium 10 MG Oral Tablet ROSUVASTATIN CALCIUM 05/27/2021 12:00:00 AM EDT tablet 30 TAKE ONE TABLET BY MOUTH MARIA DEL ROSARIO DAY TAKE ONE TABLET BY MOUTH EVERY DAY SOLD: 05/28/2021 [facility] Ergocalciferol 45621 UNT Oral Capsule Vitamin D (Ergocalcife rol) 05/26/2021 12:00:00 AM EDT active M [facility] ([facility]) Rosuvastatin calcium 10 MG Oral Tablet [Crestor] Crestor 05/26/2021 12:00:00 AM EDT ORAL active [facility] ([facility]) 0.05 % 05/09/2021 12:00:00 AM EDT cream 45 APPLY TO AFFECTED AREA(S) OF BODY NEEDED TWO TIMES A DAY FOR DRY SKIN PLAQUES APPLY TO AFFECTED AREA(S) OF BODY NEEDED TWO TIMES A DAY FOR DRY SKIN PLAQUES SOLD: 05/10/2021 [facility] Ketoconazole 20 MG/ML Topical Cream Ketoconazole 05/08/2021 12:00:00 AM EDT completed [facility] ([facility]) [facility] Home Sleep Study 05/08/2021 12:00:00 AM EDT active [facility] ([facility]) Betamethasone 0.5 MG/ML Topical Cream Betamethasone Dipropio frida 05/08/2021 12:00:00 AM EDT active M [facility] ([facility]) Insurance Providers Payer name Policy type / Coverage type Policy ID Covered libertarian ID Covered libertarian's relationship to sivla Policy Silva Plan Information [employer] [place]/307 [id number] SP [id number] [place] [place]/307 [id number] SP [id number] [facility] [id number] SP [id number] SELF PAY ONLY [id number] SP [id number] [employer] [place] 302/307 [id number] SP [id number] [facility] [place] [facility] [facility] [id number] Self HU [id number] [employer] Commercial [id number] Self [id number] [facility] [place] [employer] Commercial [id number] Self HU [id number] [facility] [place] [employer] Commercial [id number] Self HU [id number] [facility] U/[employer] Commercial [id number] Self HU [id number] [facility] [employer] Commercial [id number] Self HU [id number] [employer] [id number] SP [id number] [employer] (pr) Commercial [id number] [place] [employer] [place] [employer] [id number] SP [id number] [employer] HEALTH [place] P [id number] S [id number] STATE INSURANCE FUND [id number] SP [id number] [employer]URANCE [id number] SP [id number] [employer] [place]/307 [id number] [place] [id number] [employer] [place] 302/307 [id number] [employer] [place] 302/307 [id number] SP [id number] [facility] PLUS [id number] SP [id number] [employer] [place] P [id number] S [id number] [employer] P [id number] S [id number] [employer] P UNAVAILABLE S UNAVAILA BLE Problems, Conditions, and Diagnoses Code Display Name Description Problem Type Effective Dates Data Source(s) G47.33 Obstructive sleep apnea syndrome Obstructive sle ep apnea syndrome Problem 06/16/2021 12:00:00 AM EDT [facility] ([facility]) R73.01 Impaired fasting glycemia Impaired fasting glycemia Pr oblem 06/16/2021 12:00:00 AM EDT [facility] ([facility]) E78.00 Pure hypercholesterolemia Pure hypercholesterolemia Pr oblem 06/16/2021 12:00:00 AM EDT [facility] ([facility]) E55.9 Vitamin D deficiency Vitamin D deficiency Problem 06/16/2021 12:00:00 AM EDT [facility] ([facility]) Surgeries/Procedures Procedure Description Date Indications Data Source(s) OFFICE OUTPATIENT VISIT 25 MINUTES 06/16/2021 12:00:00 AM EDT [facility] ([facility]) OFFICE OUTPATIENT NEW 45 MINUTES 06/02/2021 12:00:00 A M EDT [facility] ([facility], ) OFFICE OUTPATIENT VISIT 25 MINUTES 05/08/2021 12:00:00 AM EDT [facility] ([facility]) Results ID Date Data Source [id number] 05/22/2021 08:11:00 AM EDT [facility] ([facility]) Name Value Range Interpretation Code Description Data Verónica rce(s) Supporting Document(s) Triglycerides Level 133 mg/dL Normal (applies to non-nume aleja results) [facility] ([facility]) Cholesterol Level 253 mg/dL Above high normal [facility] ([facility]) HDL Cholesterol 45 mg/dL Normal (applies to non-numeric results) [facility] ([facility]) Non-HDL-C 208 mg/dL Normal (applies to non-numeric resul ts) [facility] ([facility]) LDL Cholesterol 181 mg/dL Above high normal [place] [facility] ([facility]) Cholesterol Risk Ratio 5.622 Above high normal [facility] ([facility]) ID Date Data Source [id number] 05/22/2021 08:11:00 AM EDT [facility] ([facility]) Name Value Range Interpretation Code Description Data Verónica rce(s) Supporting Document(s) Calcidiol [Mass/volume] in Serum or Plasma 17.2 ng/mL 30.0- 100.0 Below low normal [facility] ([facility]) ID Date Data Source [id number] 05/22/2021 08:11:00 AM EDT [facility] ([facility]) Name Value Range Interpretation Code Description Data Verónica rce(s) Supporting Document(s) Thyroid Stimulating Hormone 1.820 uIU/ML 0.358-3.740 Norm al (applies to non- numeric results) [facility] ([facility]) Free T4 0.83 ng/dL 0.76-1.46 Normal (applies to non-numeric resul ts) [facility] ([facility]) ID Date Data Source [id number] 05/22/2021 08:11:00 AM EDT [facility] ([facility]) Name Value Range Interpretation Code Description Data Verónica rce(s) Supporting Document(s) Hemoglobin A1c 6.1 % Normal (applies to non-numeric r esults) [facility]) <content>REFERENCE RANGES:</content><br/ ><content></content>
<content><=5.6% NORMAL</content>
<content>5.7-6.4% SUGGESTS IMPAIRED GLUCOSE METABOLISM/PREDIABETIC</content>
<content>>= 6.5% ABNORMAL</content>
<content></content> Estimated Average Glucose 128 mg/dL 60-110 Above high normal [facility] ([facility]) ID Date Data Source [id number] 05/22/2021 08:11:00 AM EDT [facility] Name Value Range Interpretation Code Description Data Verónica rce(s) Supporting Document(s) Prostate specific Ag [Mass/volume] in Serum or Plasma 0.87 ng/mL Normal (applies to non-numeric results) [facility]) The PSA assay is performed on the [employer] analyzer by LOCI sandwich chemiluminescent immunoassay and should not be compared interchangeably with other methods. It should not be used alone as a screening test or diagnosis for the presence or absence of malignant disease. Predictions of disease recurrence should not be based solely on values obtained from serial patient serum values. ID Date Data Source [id number] 05/22/2021 08:11:00 AM EDT [facility]) Name Value Range Interpretation Code Description Data Verónica rce(s) Supporting Document(s) Glucose, Fasting 105 mg/dL 70-100 Above high normal M [facility] ([facility]) Blood Urea Nitrogen 15 mg/dL 7-18 Normal (applies to non-nume aleja results) [facility] ([facility]) Glomerular Filtration Rate Laboratory test result Normal (applies to non- numeric results) [facility] ([facility]) <content>Units are mL/min/1.73 m2</content>
<content></content>
<content>Chronic Kidney Disease Staging per NKF:</content>
<content></content>
<content>Stage I & II GFR >=60 Normal to Mildly Decreased</content>
<content>Stage III GFR 30- 59 Moderately Decreased</content>
<content>Stage IV GFR 15-29 Severely Decreased</content>
<content>Stage V GFR <15 Very Little GFR Left</content>
<content>ESRD GFR <15 on [employer]</content>
<content></content> Creatinine For GFR 0.91 mg/dL 0.70-1.30 Normal (applies to non -numeric results) [facility] ([facility]) Potassium Serum 4.7 meq/L 3.5-5.1 Normal (applies to non-numeric results) [facility] ([facility]) Chloride Level 108 meq/L 98-107 Above high normal [facility] ([facility]) Sodium Level 141 meq/L 136-145 Normal (applies to non-numeric res ults) [facility] ([facility]) Calcium Level 8.9 mg/dL 8.5-10.1 Normal (applies to non-numeric re sults) [facility] ([facility]) Carbon Dioxide Level 30 meq/L 21-32 Normal (applies to non-num landy results) [facility] ([facility]) Anion Gap 3 meq/L 8-16 Below low normal [facility] ( [facility]) Alkaline Phosphatase 110 U/L 45-117 Normal (applies to non-num landy results) [facility] ([facility]) Alt/SGPT 34 U/L 12-78 Normal (applies to non-numeric resul ts) [facility] ([facility]) Ast/Sgot 14 U/L 7-37 Normal (applies to non-numeric resul ts) [facility] ([facility]) Bilirubin,Total 0.5 mg/dL 0.2-1.0 Normal (applies to non-numeric results) [facility]) Total Protein 7.1 GM/DL 6.4-8.2 Normal (applies to non-numeric re sults) [facility] ([facility]) Albumin/Globulin Ratio 0.6 Normal (applies to non-n umeric results) [facility] ([facility]) Albumin 2.7 GM/DL 3.2-5.2 Below low normal [facility] ( [facility]) ID Date Data Source [id number] 05/22/2021 08:11:00 AM EDT [facility] Name Value Range Interpretation Code Description Data Verónica rce(s) Supporting Document(s) White Blood Count 9.7 10 4.0-10.0 Normal (applies to non-numeri c results) [facility] ([facility]) Hemoglobin 15.9 g/dL 13.5-17.5 Normal (applies to non-numeric resul ts) [facility] ([facility]) Red Blood Count 5.29 10 4.30-6.10 Normal (applies to non-numeric results) [facility] ([facility]) Mean Corpuscular Volume 91.3 fl 80.0-96.0 Normal ( applies to non-numeric results) [facility] ([facility]) Mean Corpuscular Hemoglobin 30.1 pg 27.0-33.0 Norm al (applies to non-numeric results) [facility] ([facility]) Hematocrit 48.3 % 42.0-52.0 Normal (applies to non-numeric resul ts) [facility] ([facility]) Mean Corpuscular HGB Conc 32.9 g/dL 32.0-36.5 Normal (applies to non-numeric results) [facility] ([facility]) Red Cell Distribution Width 12.6 % 11.5-14.5 Norm al (applies to non-numeric results) [facility] ([facility]) Neutrophils % 55.5 % 36.0-66.0 Normal (applies to non-numeric re sults) [facility] ([facility]) Platelet Count, Automated 270 10 150-450 Normal (applies to non-numeric results) [facility] ([facility]) Lymph % 34.5 % 24.0-44.0 Normal (applies to non-numeric resul ts) [facility] ([facility]) Eos % 2.0 % 0.0-3.0 Normal (applies to non-numeric resul ts) [facility] ([facility]) [place] % 6.5 % 2.0-8.0 Normal (applies to non-numeric resul ts) [facility] ([facility]) Immature Granulocyte % 0.9 % 0-3.0 Normal (applies to non-n umeric results) [facility] ([facility]) Baso % 0.6 % 0.0-1.0 Normal (applies to non-numeric resul ts) [facility] ([facility]) Nucleated Red Blood Cell % 0.0 % 0-0 Normal (applies to n on-numeric results) [facility] ([facility]) Lymph # 3.4 10 1.5-5.0 Normal (applies to non-numeric resul ts) [facility] ([facility]) [place] # 0.6 10 0.0-0.8 Normal (applies to non-numeric resul ts) [facility] ([facility]) Neutrophils # 5.4 10 1.5-8.5 Normal (applies to non-numeric re sults) [facility] ([facility]) Baso # 0.1 10 0.0-0.2 Normal (applies to non-numeric resul ts) [facility] ([facility]) Eos # 0.2 10 0.0-0.5 Normal (applies to non-numeric resul ts) [facility] Procedure Social History No Information Vital Signs ID Date Data Source UNK Name Value Range Interpretation Code Description Data Source(s) Respiratory rate 18 /min 18 /min [facility] ( [facility] Systolic blood pressure 126 mm[Hg] 126 mm[Hg] M [facility] ([facility]) Diastolic blood pressure 74 mm[Hg] 74 mm[Hg] [facility] Body temperature 98.3 [degF] 98.3 [degF] [facility] ([facility]) Body height 69.5 [in_i] 69.5 [in_i] [facility] ([facility]) 5'9.50" Body weight 275.38 [lb_av] 275.38 [lb_av] [facility] ([facility]) Body mass index (BMI) [Ratio] 40.1 kg/m2 40.1 k g/m2 [facility] ([facility]) Oxygen saturation in Arterial blood by Pulse oximetry 96 % 96 % [facility] ([facility] Heart rate 90 /min 90 /min [facility] ([facility]) [place] body weight 160 [lb_av] 160 [lb_av] [facility] T ([facility]) Systolic blood pressure 128 mm[Hg] 128 mm[Hg] [facility] Diastolic blood pressure 78 mm[Hg] 78 mm[Hg] [facility] ([facility]) Body temperature 98.3 [degF] 98.3 [degF] [facility] ([facility]) Body height 69 [in_i] 69 [in_i] [facility] ([facility], ) 5'9" Body weight 272.38 [lb_av] 272.38 [lb_av] [facility] T ([facility]) Body mass index (BMI) [Ratio] 40.2 kg/m2 40.2 k g/m2 [facility] ([facility], ) [place] body weight 160 [lb_av] 160 [lb_av] MARY Moody ([facility], ) Body weight 123.549 kg 123.549 kg ROS[facility]DA ([facility], ) Body surface area Derived from formula 2.36 m2 2.36 m2 [facility] ([facility], ) Respiratory rate 18 /min 18 /min [facility] ( [facility]) Body temperature 98.8 [degF] 98.8 [degF] [facility] ([facility]) Heart rate 86 /min 86 /min [facility] ([facility]) Systolic blood pressure 128 mm[Hg] 128 mm[Hg] [facility] Diastolic blood pressure 78 mm[Hg] 78 mm[Hg] [facility] ([facility]) Body height 69.5 [in_i] 69.5 [in_i] [facility] ([facility]) 5'9.50" Body weight 278.38 [lb_av] 278.38 [lb_av] MARY Moody ([facility]) Body mass index (BMI) [Ratio] 40.5 kg/m2 40.5 k g/m2 [facility] ([facility]) Oxygen saturation in Arterial blood by Pulse oximetry 97 % 97 % [facility] ([facility]) [place] body weight 160 [lb_av] 160 [lb_av] [facility] ([facility])
[2021-07-23] MEDS ORDERED: propofoL 500 MG/50 ML VIAL As Ordered ONE (09:47)
[2021-07-23] MEDS ORDERED: LIDOCAINE 2% 100MG/5ML SDV (FOR ANES.) As Ordered ONE (09:47)
--- NOTE | 2021-07-23 09:48 | ROOR ---
Patient Name: Oliverio Low Procedure Date: 07/23/2021 9:22 AM Date of : 1965 Age: 55 Room: [facility] Gender: Male Note Status: Finalized Procedure: Upper GI endoscopy Indications: Functional Dyspepsia Providers: Anjum England DO Referring MD: Christiana POZO DO Requesting Provider: Medicines: Propofol per Anesthesia Complications: No immediate complications. Procedure: Pre-Anesthesia Assessment: - Prior to the procedure, a History and Physical was performed, and patient medications and allergies were reviewed. The patient is competent. The risks and benefits of the procedure and the sedation options and risks were discussed with the patient. All questions were answered and informed consent was obtained. Patient identification and proposed procedure were verified by the physician, the nurse, the author and the electrocardiographic technician in the endoscopy suite. Mental Status Examination: alert and oriented. Airway Examination: normal oropharyngeal airway and neck mobility. Respiratory Examination: clear to auscultation. CV Examination: normal. Prophylactic Antibiotics: The patient does not require prophylactic antibiotics. Prior Anticoagulants: The patient has taken no previous anticoagulant or antiplatelet agents. ASA Grade Assessment: II - A patient with mild systemic disease. After reviewing the risks and benefits, the patient was deemed in satisfactory condition to undergo the procedure. The anesthesia plan was to use monitored anesthesia care (MAC). Immediately prior to administration of medications, the patient was re-assessed for adequacy to receive sedatives. The heart rate, respiratory rate, oxygen saturations, blood pressure, adequacy of pulmonary ventilation, and response to care were monitored throughout the procedure. The physical status of the patient was re-assessed after the procedure. The Endoscope was introduced through the mouth, and advanced to the second part of duodenum. The upper GI endoscopy was accomplished without difficulty. The patient tolerated the procedure well. Findings: The Z-line was irregular. Biopsies were taken with a cold forceps for histology. Estimated blood loss was minimal. Scattered moderate inflammation characterized by adherent blood, congestion (edema), erosions, erythema, friability and linear erosions was found in the prepyloric region of the stomach. Biopsies were taken with a cold forceps for Helicobacter pylori testing. Estimated blood loss was minimal. Impression: - Z-line irregular. Biopsied. - Gastritis. Biopsied. Recommendation: - Patient has a contact number available for emergencies. The signs and symptoms of potential delayed complications were discussed with the patient. Return to normal activities tomorrow. Written discharge instructions were provided to the patient. - Await pathology results. - Return to physician assistant restaurant general manager at appointment to be scheduled. Procedure Code(s): --- Professional --- 83246, Esophagogastroduodenoscopy, flexible, transoral; with biopsy, single or multiple Diagnosis Code(s): --- Professional --- K22.8, Other specified diseases of esophagus K29.70, Gastritis, unspecified, without bleeding K30, Functional dyspepsia CPT copyright 2019 [employer]. All rights reserved. The codes documented in this report are preliminary and upon senior compliance analyst review may be revised to meet current compliance requirements. Anjum England DO 07/23/2021 9:48:09 AM Electronically signed by Anjum England DO Number of Addenda: 0 Note Initiated On: 07/23/2021 9:22 AM Estimated Blood Loss: Estimated blood loss was minimal.
--- NOTE | 2021-07-23 09:50 | ROOR ---
Patient Name: Oliverio Low Procedure Date: 07/23/2021 9:23 AM Date of : 1965 Age: 55 Room: [facility] Gender: Male Note Status: Finalized Procedure: Colonoscopy Indications: Screening for colorectal malignant neoplasm Providers: Anjum England DO Referring MD: Christiana POZO DO Requesting Provider: Medicines: Propofol per Anesthesia Complications: No immediate complications. Procedure: Pre-Anesthesia Assessment: - Prior to the procedure, a History and Physical was performed, and patient medications and allergies were reviewed. The patient is competent. The risks and benefits of the procedure and the sedation options and risks were discussed with the patient. All questions were answered and informed consent was obtained. Patient identification and proposed procedure were verified by the physician, the nurse, the mast maker and the medical laboratory technicians in the endoscopy suite. Mental Status Examination: alert and oriented. Airway Examination: normal oropharyngeal airway and neck mobility. Respiratory Examination: clear to auscultation. CV Examination: normal. Prophylactic Antibiotics: The patient does not require prophylactic antibiotics. Prior Anticoagulants: The patient has taken no previous anticoagulant or antiplatelet agents. ASA Grade Assessment: II - A patient with mild systemic disease. After reviewing the risks and benefits, the patient was deemed in satisfactory condition to undergo the procedure. The anesthesia plan was to use monitored anesthesia care (MAC). Immediately prior to administration of medications, the patient was re-assessed for adequacy to receive sedatives. The heart rate, respiratory rate, oxygen saturations, blood pressure, adequacy of pulmonary ventilation, and response to care were monitored throughout the procedure. The physical status of the patient was re-assessed after the procedure. The Colonoscope was introduced through the anus and advanced to the cecum, identified by appendiceal orifice and ileocecal valve. The colonoscopy was performed without difficulty. The patient tolerated the procedure well. Findings: The colon (entire examined portion) appeared normal. The entire examined colon appeared normal on direct and retroflexion views. Impression: - The entire examined colon is normal. - The entire examined colon is normal on direct and retroflexion views. - No specimens collected. Recommendation: - Patient has a contact number available for emergencies. The signs and symptoms of potential delayed complications were discussed with the patient. Return to normal activities tomorrow. Written discharge instructions were provided to the patient. - Repeat colonoscopy in 5-10 years for screening purposes. - Return to my office PRN. Procedure Code(s): --- Professional --- G0121, Colorectal cancer screening; colonoscopy on individual not meeting criteria for high risk Diagnosis Code(s): --- Professional --- Z12.11, Encounter for screening for malignant neoplasm of colon CPT copyright 2019 [employer]. All rights reserved. The codes documented in this report are preliminary and upon him coder review may be revised to meet current compliance requirements. Anjum England DO 07/23/2021 9:49:25 AM Electronically signed by Anjum England DO Number of Addenda: 0 Note Initiated On: 07/23/2021 9:23 AM Estimated Blood Loss: Estimated blood loss: none.
[2021-07-23 10:10] VITALS: BP 149/95
== END 2021-07-23 10:14 | disposition home or self-care (01) ==
LOC: M OPP 08:14
PROVIDERS: ATTEND Surgery
DX: Z12.11 Encounter for screening for malignant neoplasm of colon (principal); R19.4 Change in bowel habit; K22.89 Other specified disease of esophagus; K29.70 Gastritis, unspecified, without bleeding; K30 Functional dyspepsia; Z79.899 Other long term (current) drug therapy; Z88.0 Allergy status to penicillin

== ENCOUNTER 2022-08-30 10:09 | Emergency (ER) | payer BC ==
[~2022-08-30 10:09] MED LIST changes: -NS 1,000 ML IV ONE
[2022-08-30 10:49] VITALS: BP 127/67
[2022-08-30] MEDS ORDERED: VENTAER INH (11:23)
[2022-08-30] MEDS ORDERED: AMOX875T2 PO (11:23)
== END 2022-08-30 11:32 | disposition home or self-care (01) ==
LOC: M ED 10:09 → EDBD 10:09 → M ED 11:32
DX: J09.X2 Influenza due to identified novel influenza A virus with other respiratory manifestations (principal); G47.33 Obstructive sleep apnea (adult) (pediatric); Z79.51 Long term (current) use of inhaled steroids

== ENCOUNTER → 2024-08-31 | Outpatient (CLI) | payer BC ==
[~2024-08-31] MED LIST changes: +AMOX875T2 PO; -ROSU10TA6; +ROSU10TA61; +VENTAER INH
== END ==
LOC: M WUC 14:12
PROVIDERS: ATTEND Nurse Practitioner Family
DX: R07.82 Intercostal pain (principal)

== ENCOUNTER → 2024-09-01 | Outpatient (CLI) | payer BC ==
[2024-09-01 10:28] LABS: BASO % 0.3 % (0.0-1.0); EOS % 0.1 % (0.0-3.0); HEMATOCRIT 50.9 % (42.0-52.0); HEMOGLOBIN 16.4 g/dl (13.5-17.5); LYMPH # 3.1 10^3/uL (1.5-5.0); LYMPH % 20.5 % (24.0-44.0); MEAN CORPUSCULAR HEMOGLOBIN 30.3 pg (27.0-33.0); MEAN CORPUSCULAR HGB CONC 32.2 g/dl (32.0-36.5); MEAN CORPUSCULAR VOLUME 93.9 fl (80.0-96.0); MONO # 0.6 10^3/uL (0.0-0.8); MONO % 4.1 % (2.0-8.0); NEUTROPHILS # 11.1 10^3/uL (1.5-8.5); NEUTROPHILS % 74.7 % (36.0-66.0); PLATELET COUNT, AUTOMATED 303 10^3/uL (150-450); RED BLOOD COUNT 5.42 10^6/uL (4.30-6.10); WHITE BLOOD COUNT 14.9 10^3/uL (4.0-10.0)
[2024-09-01 10:29] LABS: ALBUMIN 2.7 G/DL (3.2-5.2); ALKALINE PHOSPHATASE 128 U/L (40-129); ALT/SGPT 28 U/L (7.0-40); AST/SGOT 13 U/L (<34); BILIRUBIN,TOTAL 0.5 MG/DL (0.3-1.2); BLOOD UREA NITROGEN 17 MG/DL (9-23); CALCIUM LEVEL 9.1 MG/DL (8.5-10.1); CARBON DIOXIDE LEVEL 28 MMOL/L (20-31); CHLORIDE LEVEL 106 MMOL/L (98-107); CHOLESTEROL LEVEL 260 MG/DL (<200); CHOLESTEROL RISK RATIO 5.81 (<5); CREATININE FOR GFR 0.85 MG/DL (0.70-1.30); GLOMERULAR FILTRATION RATE > 60.0 (>56); GLUCOSE, FASTING 125 MG/DL (60-100); HDL CHOLESTEROL 44.7 MG/DL (>40); LDL CHOLESTEROL 200.9 MG/DL (<100); NON-HDL-C 215.3 MG/DL; POTASSIUM SERUM 4.6 MMOL/L (3.5-5.1); SODIUM LEVEL 142 MMOL/L (136-145); TOTAL PROTEIN 7.6 G/DL (5.7-8.2); TRIGLYCERIDES LEVEL 72 MG/DL (<150)
[2024-09-01 10:34] LABS: THYROID STIMULATING HORMONE 1.284 uIU/ML (0.55-4.78)
[2024-09-01 10:37] LABS: FREE T4 0.89 NG/DL (0.89-1.76)
[2024-09-01 11:03] LABS: HEMOGLOBIN A1c 6.2 % (4.0-6.0)
[2024-09-04 12:28] LABS: PSA FREE 0.2 ng/mL; PSA TOTAL 0.7 ng/mL (< OR = 4.0)
== END ==
LOC: M WUC 08:06
PROVIDERS: ATTEND Physician Assistant
DX: E78.00 Pure hypercholesterolemia, unspecified (principal); E66.9 Obesity, unspecified; R73.01 Impaired fasting glucose

== ENCOUNTER → 2024-11-23 | Outpatient (CLI) | payer BC ==
[~2024-11-23] MED LIST changes: +ISOVUE-370 76% 100ML VIAL ONE
== END ==
LOC: M PLAIMG 08:39
PROVIDERS: ATTEND Physician Assistant
DX: R68.81 Early satiety (principal)